=== PATIENT | female | born 1955 | race Caucasian/White ===

== ENCOUNTER 2018-09-06 21:02 | Observation (INO) | payer OTHER ==
[2018-09-06] MEDS ORDERED: DOCUSATE SODIUM 100 MG CAP PO (22:30)
[2018-09-06] MEDS ORDERED: ONDANSETRON 4 MG INJ IV (22:30)
[2018-09-06] MEDS ORDERED: BISACODYL (EC) 5 MG TAB PO (22:30)
[2018-09-06] MEDS ORDERED: NACL 0.9% 3 ML SYG IV (22:30)
[2018-09-06] MEDS ORDERED: hydrALAzine 20 MG INJ IV (23:30)
[2018-09-07 05:51] LABS: ADD MAN DIFF? NO
[2018-09-07 06:05] LABS: BASOPHIL # 0.1 10^3/ul (0.0-0.1); BASOPHILS % 0.8 % (0.0-2.0); EOSINOPHILS # 0.1 10^3/ul (0.0-0.5); EOSINOPHILS % 2.2 % (0.0-7.0); HEMATOCRIT 39.6 % (37.0-47.0); LYMPHOCYTES # 1.6 10^3/ul (0.8-2.9); LYMPHOCYTES % 24.7 % (15.0-51.0); MEAN CORPUSCULAR HEMOGLOBIN 28.3 pg (29.0-33.0); MEAN CORPUSCULAR HGB CONC 32.8 g/dl (32.0-37.0); MEAN CORPUSCULAR VOLUME 86.3 fl (82.0-101.0); MEAN PLATELET VOLUME 9.5 fl (7.4-10.4); MONOCYTE # 0.5 10^3/ul (0.3-0.9); MONOCYTES % 7.3 % (0.0-11.0); NEUTROPHIL # 4.1 10^3/ul (1.6-7.5); NEUTROPHILS % 64.7 % (39.0-77.0); PLATELET COUNT 266 10^3/UL (140-415); RED BLOOD COUNT 4.59 10^6/ul (4.20-5.40)
[2018-09-07 06:05] LABS: WHITE BLOOD COUNT 6.3 10^3/ul (4.8-10.8)
[2018-09-07 06:39] LABS: ALANINE AMINOTRANSFERASE 23 IU/L (13-69); ALBUMIN/GLOBULIN RATIO 1.29; ALKALINE PHOSPHATASE 64 IU/L (42-121); ANION GAP 7 (5-13); ASPARTATE AMINO TRANSFERASE 23 IU/L (15-46); BILIRUBIN,INDIRECT 0.5 mg/dl (0-1.1); BILIRUBIN,TOTAL 0.5 mg/dl (0.2-1.3); BLOOD UREA NITROGEN 20 mg/dl (7-20); CALCIUM 9.1 mg/dl (8.4-10.2); CARBON DIOXIDE 27 mmol/L (21-31); CHLORIDE 110 mmol/L (97-110); CHOL/HDL RATIO 2.7 RATIO; CHOLESTEROL 228 mg/dl (100-200); CREATININE 0.67 mg/dl (0.44-1.00); Estimated GFR > 60 mL/min (>60); GLUCOSE 103 mg/dl (70-220); HDL CHOLESTEROL 84 mg/dl (35-98); LDL CHOLESTEROL,CALCULATED 114 mg/dl; SODIUM 144 mmol/L (135-144); TOTAL PROTEIN 7.1 g/dl (6.1-8.1); TRIGLYCERIDES 150 mg/dl (0-149)
[2018-09-07 06:53] LABS: HEMOGLOBIN A1C 4.9 % (0-5.9)
[2018-09-07] MEDS ORDERED: TIZANIDINE 4 MG TAB PO (09:00)
[2018-09-07] MEDS: PANTOPRAZOLE (EC) 40 MG TAB PO (09:32)
[2018-09-07] MEDS: LISINOPRIL 10 MG TAB PO (09:32)
[2018-09-07] MEDS: DULOXETINE 30 MG CAP DR PO (09:33)
[2018-09-07] MEDS: ASPIRIN 81 MG TAB PO (09:33)
[2018-09-07] MEDS: ACETAMINOPHEN 325 MG TAB PO (10:01)
[2018-09-07 10:08] LABS: FREE T3 3.55 pg/ml (2.77-5.27)
[2018-09-07 10:41] LABS: FREE T4 (FREE THYROXINE) 0.96 ng/dl (0.78-2.44)
[2018-09-07] MEDS: SULINDAC 200 MG TAB PO ×2 (14:10→23:05)
[2018-09-07 20:42] LABS: RAPID PLASMA REAGIN NONREACTIVE (NR)
[2018-09-07] MEDS: ATORVASTATIN 40 MG TAB PO (20:51)
[2018-09-08 04:04] LABS: AMPHETAMINE/METHAMPHETAMINE NEGATIVE (NEGATIVE); BENZODIAZEPINES NEGATIVE (NEGATIVE); CANNABINOIDS NEGATIVE (NEGATIVE); COCAINE NEGATIVE (NEGATIVE); OPIATES POSITIVE (NEGATIVE)
[2018-09-08 04:12] LABS: BARBITURATES NEGATIVE (NEGATIVE)
[2018-09-08] MEDS: LISINOPRIL 10 MG TAB PO (09:00)
[2018-09-08] MEDS: DULOXETINE 30 MG CAP DR PO (09:15)
[2018-09-08] MEDS: SULINDAC 200 MG TAB PO (09:15)
[2018-09-08] MEDS: PANTOPRAZOLE (EC) 40 MG TAB PO (09:15)
[2018-09-08] MEDS: ASPIRIN 81 MG TAB PO (09:16)
== END 2018-09-08 13:45 | disposition home or self-care (01) ==
LOC: 6WM 21:02
PROVIDERS: Internal Medicine
DX: R47.81 Slurred speech (principal); R51 Headache; M79.7 Fibromyalgia
CPT/HCPCS: 70544; 70548; 70551; 71045; 80053; 80061; 80307; 83036; 83735; 84439; 84443; 84481; 85025; 85651; 86592; 92610; 93306; 93880; 97161; 99217; G0378